=== PATIENT | female | born 1995 | race Hispanic/Latino ===

== ENCOUNTER 2024-08-16 23:12 | Inpatient (IN) | payer MEDICAID ==
[~2024-08-16] VITALS: Ht 154.9 cm; Wt 73.5 kg
[~2024-08-16 23:12] MED LIST: FERR-82 PO; PREN-196 PO
[2024-08-16 23:46] LABS: APPEARANCE,URINE CLOUDY (CLEAR); BILIRUBIN,URINE NEGATIVE (NEGATIVE); COLOR,URINE YELLOW (YELLOW); GLUCOSE, URINE (UA) NEGATIVE (NEGATIVE); KETONES,URINE NEGATIVE (NEGATIVE); LEUKOCYTE ESTERASE ,URINE 500 Leu/uL (NEGATIVE); NITRATE,URINE NEGATIVE (NEGATIVE); OCCULT BLOOD,URINE NEGATIVE (NEGATIVE); PH,URINE 6.5 (5.0-8.0); PROTEIN,URINE 20 mg/dL (NEGATIVE)
[2024-08-16 23:47] LABS: ADD UA MICROSCOPIC YES
[2024-08-16 23:51] LABS: BACTERIA,URINE FEW /HPF (None Seen); MUCUS,URINE FEW LPF (None Seen); SQUAMOUS EPITHELIAL CELL,UR MOD /HPF (0-2); WBC,URINE 51-100 /HPF (0-1)
[2024-08-17] MEDS ORDERED: NALoxone HCL 0.4 MG/1 ML ML IV PRN
[2024-08-17] MEDS ORDERED: ePHEDrine SULFate 50 MG/ML AMPULE IVP PRN
[2024-08-17] MEDS ORDERED: LACTATED RINGERS 500 ML 500 ML IV PRN
[2024-08-17 00:14] LABS: HEMATOCRIT 31.3 % (36-48); MEAN CORPUSCULAR HEMOGLOBIN 23.9 pg (27.0-33.0); MEAN CORPUSCULAR HGB CONC 30.4 g/dL (32.0-36.0); MEAN CORPUSCULAR VOLUME 78.6 fL (79-99); NUCLEATED RED BLOOD CELLS 0.5 % (0.0-0.19); PLATELET COUNT (AUTO) 255 K/uL (130-400); RED BLOOD CELL COUNT(AUTO) 3.98 MIL/uL (4.00-5.50); RED CELL DISTRIBUTION WIDTH 15.7 % (11.0-15.5); WHITE BLOOD COUNT (AUTO) 8.4 K/uL (4.8-10.8)
[2024-08-17] MEDS: LACTATED RINGERS 1000ML 1,000 ML IV PRN (00:14)
[2024-08-17] MEDS ORDERED: MEPERIDINE-PF 50 MG/ML SYG IVP PRN (00:30)
[2024-08-17] MEDS ORDERED: PROMETHAZINE HCL 25 MG/ML 1ML AMPULE IM PRN (00:30)
[2024-08-17] MEDS ORDERED: LIDOCAINE HCL 1% 20 ML VIAL ONE (10:29)
[2024-08-17] MEDS ORDERED: MISOPROSTOL 100 MCG TABLET PR ONE (10:49)
[2024-08-17] MEDS ORDERED: LIDOCAINE HCL 1% 20 ML VIAL INJ SCH (10:51)
[2024-08-17] MEDS: MISOPROSTOL 200 MCG TABLET ONE (10:57)
[2024-08-17] MEDS ORDERED: MISOPROSTOL 200 MCG TABLET VG SCH (11:00)
[2024-08-17] MEDS ORDERED: acetaMINOPHEN 325 MG TAB PO PRN (11:00)
[2024-08-17] MEDS ORDERED: DIPH,PERTUSS(ACELL),TET VAC/PF 0.5 ML VIAL IM PRN (11:00)
[2024-08-17] MEDS ORDERED: ibuPROFEN 600 MG TABLET PO PRN (11:00)
[2024-08-17] MEDS ORDERED: acetaMINOPHEN WITH coDEINE 1 TAB TAB PO PRN (11:00)
[2024-08-17] MEDS ORDERED: MEASLES/MUMPS/RUBELLA VACCINE, LIVE 0.5 ML/VIAL SQ PRN (11:00)
[2024-08-17] MEDS: WITCH HAZEL 1 PAD TP PRN (13:56)
[2024-08-17] MEDS: BENZOCAINE/LANOLIN/ALOE VERA 60 ML AEROSOL TP PRN (13:56)
[2024-08-17] MEDS: LANOLIN 30GM OINTMENT TP PRN (13:56)
[2024-08-17 14:45] VITALS: BP 130/85; PULSE 79; RESP 18; TEMP 98.7
[2024-08-17] MEDS: FLU VACC TS2024-25(6MOS UP)/PF 45 MCG/0.5 ML ML IM ONE (17:59)
[2024-08-17 19:30] VITALS: BP 119/73; PULSE 85; RESP 18; TEMP 98.5
[2024-08-17] MEDS: doCUSate SODIUM 100 MG CAP PO SCH (21:00)
[2024-08-17 23:35] VITALS: BP 118/75; PULSE 87; RESP 16; TEMP 98.8
[2024-08-18 03:40] VITALS: BP 107/60; PULSE 74; RESP 18; TEMP 97.9
[2024-08-18 06:38] LABS: HEMATOCRIT 27.2 % (36-48); MEAN CORPUSCULAR HGB CONC 30.9 g/dL (32.0-36.0); MEAN CORPUSCULAR VOLUME 77.7 fL (79-99); NUCLEATED RED BLOOD CELLS 0.2 % (0.0-0.19); RED BLOOD CELL COUNT(AUTO) 3.5 MIL/uL (4.00-5.50); RED CELL DISTRIBUTION WIDTH 15.9 % (11.0-15.5); WHITE BLOOD COUNT (AUTO) 8.8 K/uL (4.8-10.8)
[2024-08-18 07:50] VITALS: BP 111/73; PULSE 71; RESP 18; TEMP 98
[2024-08-18 12:08] VITALS: BP 124/76; PULSE 79; RESP 18; TEMP 97.9
== END 2024-08-18 13:00 | disposition home or self-care (01) | DRG 560 ==
LOC: EDH 23:12 → OBSVTOIN 23:27 → LDH 23:27 → WSH 08-17 13:38
PROVIDERS: ADMIT Obstetrics & Gynecology; ATTEND Obstetrics & Gynecology
PROC: 10E0XZZ Delivery of Products of Conception, External Approach (ICD-10-PCS; principal; 2024-08-17)
PROC: 10907ZC Drainage of Amniotic Fluid, Therapeutic from Products of Conception, Via Natural or Artificial Opening (ICD-10-PCS; 2024-08-17)
PROC: 0KQM0ZZ Repair Perineum Muscle, Open Approach (ICD-10-PCS; 2024-08-17)
PROC: 3E033VJ Introduction of Other Hormone into Peripheral Vein, Percutaneous Approach (ICD-10-PCS; 2024-08-17)
PROC: 3E0R3BZ Introduction of Anesthetic Agent into Spinal Canal, Percutaneous Approach (ICD-10-PCS; 2024-08-17)
PROC: 00HU33Z Insertion of Infusion Device into Spinal Canal, Percutaneous Approach (ICD-10-PCS; 2024-08-17)
PROC: 3E02340 Introduction of Influenza Vaccine into Muscle, Percutaneous Approach (ICD-10-PCS; 2024-08-17)
DX: O99.02 Anemia complicating childbirth (principal); Z37.0 Single live birth; O70.1 Second degree perineal laceration during delivery; Z3A.39 39 weeks gestation of pregnancy; Z23 Encounter for immunization
CPT/HCPCS: 36415; 81001; 85027; 86592; 86850; 86900; 86901; 87086; 87340; A4314; G0008; G0378; J2210; J2795; J7120; Q2035; Q2038